=== PATIENT | male | born 1995 | race American Indian/Alaskan Native ===

== ENCOUNTER 2020-03-22 19:15 | Emergency (ER) | payer SELFPAY ==
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
[2020-03-22] MEDS ORDERED: IBUPROFEN 800 MG TAB PO ONE (21:43)
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
--- NOTE | 2020-03-22 22:00 | Cat Scan Report ---
CT FACE HISTORY: Trauma COMPARISON: None. TECHNIQUE: Axial images of the face were obtained. Coronal and sagittal reformats were generated.All CT scans at this location are performed using CT dose reduction for ALARA by means of automated expo sure control CONTRAST: None. FINDINGS: Facial bones: Abnormal Midface: Nasal bones: normal. Perpendicular plate of ethmoid: normal. Nasoseptal cartilage: Normal; no soft tissue thickening Bony orbit: Orbital emphysema; fracture of left orbital floor; Inferior orbital rim normal. Fracture involves approximately 2 cm in the transverse dimension along the orbital floor. Very minimal displa cement of the orbital floor; lamina papyracea is intact. Naso-orbitoethmoid Complex: Nasolacrimal duct normal; left frontal sinus mucosal thickening inferiorly; left frontal nasal duct o pacified Since there is no medial orbital wall fracture, I am considering HUY complex to be normal. Mandible: No fracture; osteitis in the medullary bone of the right mandible from chronic osteitis Anterior skull base: Break in the cortex of the anterior skull base along the right fovea ethmoidale. Paranasal sinuses: Soft tissue thickening near the ostium of both maxillary sinuses more prominent on the left side. On the left side, probably blood in the left maxillary sinus natural ostium. Orbits: Roof and lateral wall of the orbits normal Visualized images of the intracranial space: No pneumocephalus Additional findings: None. IMPRESSION: 1. Left orbital floor fracture with resulting in orbital emphysema Midface is normal. Left frontal duct is opacified. Signer Name: Pamela Romero MD Signed: 03/22/2020 9:55 PM Workstation Name: [id number] [id number]
[2020-03-22] MEDS ORDERED: AMOXICILLIN 500 MG CAP PO ONE (22:09)
[2020-03-22 22:56] VITALS: BP 145/81
== END 2020-03-22 22:45 | disposition home or self-care (01) ==
LOC: ED 19:15
DX: S02.32XA Fracture of orbital floor, left side, initial encounter for closed fracture (principal); X58.XXXA Exposure to other specified factors, initial encounter; Y93.89 Activity, other specified; Y92.89 Other specified places as the place of occurrence of the external cause; Y99.8 Other external cause status
CPT/HCPCS: 70450; 70486